=== PATIENT | male | born 1980 | race Native Hawaiian/Other Pacific Islander ===

== ENCOUNTER 2018-09-24 21:49 | Emergency (ER) | payer OTHER, BC ==
[~2018-09-24] VITALS: Ht 160 cm; Wt 75.0 kg
[2018-09-24] MEDS ORDERED: IBUPROFEN 600 MG TAB PO ONE (23:00)
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
[2018-09-25] MEDS ORDERED: CARISOPRODOL 350 MG TAB PO ONE (00:30)
[2018-09-25] MEDS ORDERED: CYCL10TA PO (00:36)
[2018-09-25] MEDS ORDERED: IBUP-1022 PO (00:36)
[2018-09-25 00:41] VITALS: BP 138/84
== END 2018-09-25 00:47 | disposition home or self-care (01) ==
LOC: M ED 21:49
DX: S80.11XA Contusion of right lower leg, initial encounter (principal); S39.012A Strain of muscle, fascia and tendon of lower back, initial encounter; V40.5XXA Car driver injured in collision with pedestrian or animal in traffic accident, initial encounter; Y92.410 Unspecified street and highway as the place of occurrence of the external cause